=== PATIENT | female | born 1950 | race Two or more races ===

== ENCOUNTER 2025-05-07 06:17 | Emergency (ER) | payer OTHER ==
[~2025-05-07] VITALS: Ht 142.2 cm; Wt 43.1 kg
[~2025-05-07 06:17] MED LIST: GLUMETZA1000 MG; IBU800 MG PO; LOSARTAN POTAS100 MG; PNEU16DI2; SYNTHROID50 MCG; VERAPAMIL ER240 MG; XIGDUO XR 5 MG1 EACH PO; ZOCOR40 MG
[2025-05-07] MEDS ORDERED: TRIJARDY XR 251 EACH PO (06:23)
[2025-05-07] MEDS ORDERED: GRALISE600 MG (06:24)
[2025-05-07] MEDS ORDERED: VERAPAMIL HCL240 M1 PO (06:24)
[2025-05-07] MEDS ORDERED: HYDRALAZINE HCL25 MG PO (06:24)
[2025-05-07] MEDS ORDERED: ADULT LOW DOSE81 M1 (06:25)
[2025-05-07] MEDS ORDERED: KETOROLAC TROMETHAMINE 30 MG VIAL IM STA (10:06)
[2025-05-07] MEDS ORDERED: KETOROLAC TROMETHAMINE 30 MG VIAL ONE (10:22)
== END 2025-05-07 10:33 | disposition home or self-care (01) ==
LOC: ER 06:17
DX: G89.11 Acute pain due to trauma (principal); R68.84 Jaw pain; M25.561 Pain in right knee; M25.531 Pain in right wrist; Z88.5 Allergy status to narcotic agent